=== PATIENT | female | born 1950 | race Caucasian/White ===

== ENCOUNTER 2020-11-30 13:09 | Outpatient (CLI) | payer MEDICARE ==
--- NOTE | 2020-11-30 14:01 | ULT ---
US Breast Limited Lt: 11/30/2020 12:00 AM CLINICAL INDICATION: Palpable breast mass and pain at the 2:00 position of the left breast. COMPARISON: Mammogram 11/30/2020 TECHNIQUE: Multiplanar grayscale and color Doppler images were obtained of the breast. FINDINGS: Normal appearing parenchyma is seen. No suspicious mass is seen. No suspicious shadowing is seen. No cyst is identified. IMPRESSION: BI-RADS Category 1-negative.
--- NOTE | 2020-11-30 14:04 | MMO ---
Bilateral MAMMO Bilat Diag [facility]DI+DASH. CLINICAL HISTORY: Patient is 70 years old and is seen for diagnostic exam and palpable abnormality in the left breast at 3 o'clock. The patient has no family history of breast cancer. The patient has no personal history of cancer. VIEWS: The views performed were: bilateral craniocaudal with tomosynthesis; bilateral mediolateral oblique with tomosynthesis; and bilateral mediolateral with tomosynthesis. FILMS COMPARED: The present examination has been compared to prior imaging studies performed at and at [facility] on 11/30/2020. This study has been interpreted with the assistance of computer-aided detection. MAMMOGRAM FINDINGS: There are scattered fibroglandular densities. There are stable benign appearing calcifications seen in both breasts. There are also vascular calcifications. There are no suspicious masses, suspicious calcifications, or new areas of architectural distortion. IMPRESSION: THERE IS NO MAMMOGRAPHIC EVIDENCE OF MALIGNANCY. A ROUTINE FOLLOW-UP MAMMOGRAM IN 1 YEAR IS RECOMMENDED. THE RESULTS OF THIS EXAM WERE SENT TO THE PATIENT. ACR BI-RADS Category 2 - Benign finding MAMMOGRAPHY NOTE: 1. A negative mammogram report should not delay a biopsy if a dominant of clinically suspicious mass is present. 2. Approximately 10% to 15% of breast cancers are not detected by mammography. 3. Adenosis and dense breasts may obscure an underlying neoplasm. Reported by: NORIS TOMPKINS MD Electonically Signed: [id number]
== END 2020-11-30 13:10 | disposition home or self-care (01) ==
LOC: BICMAMMO 13:09
PROVIDERS: ATTEND Family Medicine
DX: N63.20 Unspecified lump in the left breast, unspecified quadrant (principal); R92.8 Other abnormal and inconclusive findings on diagnostic imaging of breast
CPT/HCPCS: 76642; 77066; G0279

== ENCOUNTER 2021-12-05 07:46 | Outpatient (CLI) | payer MEDICARE | END 2021-12-05 07:47 | disposition home or self-care (01) | LOC: BICMAMMO 07:46 | PROVIDERS: ATTEND Family Medicine | DX: Z12.31 Encounter for screening mammogram for malignant neoplasm of breast (principal) | CPT/HCPCS: 77063; 77067 ==

== ENCOUNTER 2023-02-05 08:10 | Outpatient (CLI) | payer MEDICARE | END 2023-02-05 08:11 | disposition home or self-care (01) | LOC: BICMAMMO 08:10 | PROVIDERS: ATTEND Family Medicine | DX: Z12.31 Encounter for screening mammogram for malignant neoplasm of breast (principal) | CPT/HCPCS: 77063; 77067 ==

== ENCOUNTER 2023-09-08 20:51 | Inpatient (IN) | payer MEDICARE ==
[2023-09-08] MEDS ORDERED: Morphine 4 MG/ML VIAL ONE ×2 (21:01→21:18)
[2023-09-08] MEDS ORDERED: Ondansetron PF 4 MG/2 ML Vial ONE (21:01)
[2023-09-08 23:01] LABS: #Basophils 0.1 thou/uL (0.0-0.2); #Eosinphils 0.2 thou/uL (0.0-0.7); #Monocytes 0.6 thou/uL (0.11-0.59); #Neutrophils 9.2 thou/uL (1.40-6.50); %Basophils 0.6 % (0.0-1.0); %Eosinophils 1.8 % (0.0-10.0); %Lymphocytes 15.3 % (21.0-51.0); %Monocytes 5.2 % (0.0-10.0); %Neutrophils 76.7 % (42.0-75.0); Hematocrit 32.7 % (36.0-47.0); Hemoglobin 10.3 g/dL (12.0-16.0); Mean Corpuscular HGB CONC 31.5 g/dL (32.0-36.0); Mean Corpuscular Hemoglobin 29.2 pg (27.0-31.0); Mean Corpuscular Volume 92.6 fl (78.0-98.0); Mean Platelet Volume 10.5 fL (7.4-10.4); Platelet Count 226 10x3/uL (130-400); RBC Distribution Width 13.8 % (11.5-14.5); Red Blood Cell (RBC) Count 3.53 mill/uL (4.20-5.40); White Blood Cell (WBC) Count 11.9 10x3/uL (4.8-10.8)
[2023-09-08 23:15] LABS: PTT 27.1 sec (22.9-36.1); Prothrombin Time 13.9 sec (12.0-14.7)
[2023-09-08 23:23] LABS: ALT (SGPT) 19 U/L (8-55); AST (SGOT) 20 U/L (5-34); Albumin 3.9 g/dL (3.4-4.8); Alkaline Phosphatase 114 U/L (40-110); Anion Gap 11 mmol/L (10-20); BUN (Urea Nitrogen) 20 mg/dL (9.8-20.1); Bilirubin, Total 0.4 mg/dL (0.2-1.2); Calc. Creatinine Clearance 0 mL/min (70-130); Calcium 8.6 mg/dL (7.8-10.44); Carbon Dioxide 25 mmol/L (23-31); Chloride 107 mmol/L (98-107); Estimated GFR 56; Glucose 184 mg/dL (83-110); Potassium 4.2 mmol/L (3.5-5.1); Protein, Total 5.9 g/dL (5.8-8.1); Sodium 139 mmol/L (136-145)
[2023-09-08] MEDS ORDERED: Orphenadrine Citrate 60 MG/2 ML VIAL ONE (23:39)
[2023-09-09] MEDS ORDERED: Ondansetron PF 4 MG/2 ML Vial IVP PRN ×2 (00:45→17:20)
[2023-09-09] MEDS ORDERED: Dextrose 5 %-0.45 % NaCl 1,000 ML IV SCH (00:45)
[2023-09-09] MEDS ORDERED: Ondansetron ODT 4 MG TAB SL PRN (00:45)
[2023-09-09] MEDS: Morphine 4 MG/ML VIAL SLOW IVP PRN ×2 (00:47→04:31)
[2023-09-09 01:37] VITALS: BMI 29.5
[2023-09-09] MEDS ORDERED: Ipratropium/Albuterol 3 ML NEB NEB PRN (06:54)
[2023-09-09] MEDS ORDERED: Dextrose 50% Abboject 50 ML SYRINGE SLOW IVP PRN (06:54)
[2023-09-09] MEDS ORDERED: Dextrose 5% in Water 1,000 ML IV PRN (06:54)
[2023-09-09] MEDS ORDERED: Glucagon 1 MG/ML KIT IM PRN (06:54)
[2023-09-09] MEDS ORDERED: hydrALAZINE 20 MG/ML VIAL SLOW IVP PRN (06:58)
[2023-09-09] MEDS: Acetaminophen 325 MG TAB PO SCH ×3 (07:44→18:01)
[2023-09-09 07:58] LABS: Glucose 120 mg/dL (83-110)
[2023-09-09] MEDS ORDERED: CEFAZOLIN 2 GM VIAL ONE ×2 (08:05→12:33)
[2023-09-09] MEDS ORDERED: Sodium Chloride 0.9% 200 ML ONE (08:05)
[2023-09-09] MEDS ORDERED: Tranexamic Acid 1,000 MG/10 ML VIAL ONE (08:05)
[2023-09-09] MEDS ORDERED: fentaNYL 50 mcg/mL 1 mL Vial ONE ×4 (08:13→13:28)
[2023-09-09] MEDS ORDERED: SUGAMMADEX SODIUM 200 MG/2 ML VIAL ONE (08:13)
[2023-09-09] MEDS ORDERED: Famotidine/PF 20 mg/2ml Vial ONE (08:13)
[2023-09-09] MEDS ORDERED: Ketorolac Tromethamine 30 MG/ML VIAL ONE (08:29)
[2023-09-09] MEDS ORDERED: ePHEDrine Sulfate 50 MG/10 ML VIAL ONE (08:29)
[2023-09-09] MEDS ORDERED: PROPOFOL 200 MG/20 ML VIAL ONE (08:29)
[2023-09-09] MEDS ORDERED: Ondansetron PF 4 MG/2 ML Vial ONE (08:29)
[2023-09-09] MEDS ORDERED: Lidocaine 1% PF 5 ML VIAL ONE (08:29)
[2023-09-09] MEDS ORDERED: Rocuronium Bromide 10 MG/ML (10ML VIAL) ONE (08:29)
[2023-09-09] MEDS ORDERED: PHENYLEPHRINE-NS 100 MCG/ML 10 ML SYRINGE ONE (08:29)
[2023-09-09] MEDS ORDERED: TETANUS, DIPHTHERIA TOX,ADULT (TDVAX) 0.5 ML VIAL IM ONE (09:00)
[2023-09-09] MEDS: Famotidine 20 MG TAB PO SCH ×2 (09:43→20:00)
[2023-09-09] MEDS ORDERED: Phenylephrine 10 MG/ML VIAL ONE (10:37)
[2023-09-09] MEDS ORDERED: PACU-Morphine 4MG/ML VIAL SLOW IVP PRN (11:15)
[2023-09-09] MEDS ORDERED: Promethazine HCl 25 MG/ML VIAL IM PRN (11:15)
[2023-09-09] MEDS ORDERED: Ondansetron HCl/PF 4 MG/2 ML Vial IVP PRN (11:15)
[2023-09-09] MEDS ORDERED: fentaNYL PF 100 MCG/2 ML SYRINGE ONE (12:47)
[2023-09-09 14:25] LABS: Glucose 250 mg/dL (83-110)
[2023-09-09] MEDS: HumaLOG 300 UNITS/3 ML VIAL SC PRN ×2 (14:45→17:46)
[2023-09-09] MEDS: Sodium Chloride 0.9% 1,000 ML IV SCH ×2 (14:46→19:59)
[2023-09-09] MEDS: traMADol HCl 50 MG TAB PO PRN ×2 (14:47→22:39)
[2023-09-09 17:14] LABS: Bilirubin Negative (Negative); Blood, Urine Trace (Negative); Clarity Clear (Clear); Glucose, Urine (Dipstick) 300 mg/dL (Negative); Ketone, Urine Trace mg/dL (Negative); Leukocyte 250 Leu/uL (Negative); Nitrite Negative (Negative); Protein, Urine (Dipstick) 20 mg/dL (Neg-Trace); Specific Gravity, Urine 1.026 (1.002-1.036); Urobilinogen Normal mg/dL (Less than 2)
[2023-09-09] MEDS ORDERED: Morphine 2 MG/ML VIAL SLOW IVP PRN (17:17)
[2023-09-09 17:22] LABS: Bacteria/HPF Rare-Few HPF (None Seen); RBC/HPF 0-3 HPF (0-3); Squamous Epithelial 0-3 HPF (0-3)
[2023-09-09 17:30] LABS: Glucose 249 mg/dL (83-110)
[2023-09-09] MEDS: Insulin Glargine 30 UNITS/0.3 ML VIAL SC SCH (20:00)
[2023-09-09] MEDS: CEFAZOLIN 2 GM in Sodium Chloride 0.9% 100 ML IVPB SCH (20:01)
[2023-09-10] MEDS: Acetaminophen 325 MG TAB PO SCH ×2 (01:02→05:35)
[2023-09-10] MEDS: Sodium Chloride 0.9% 1,000 ML IV SCH ×2 (03:38→22:35)
[2023-09-10] MEDS: Levothyroxine 150 MCG TAB PO SCH (05:35)
[2023-09-10] MEDS: CEFAZOLIN 2 GM in Sodium Chloride 0.9% 100 ML IVPB SCH (05:35)
[2023-09-10] MEDS ORDERED: Gabapentin 300 MG CAP PO SCH (09:00)
[2023-09-10 09:07] LABS: #Basophils 0.1 thou/uL (0.0-0.2); #Eosinphils 0.1 thou/uL (0.0-0.7); #Monocytes 0.7 thou/uL (0.11-0.59); #Neutrophils 4.7 thou/uL (1.40-6.50); %Basophils 0.7 % (0.0-1.0); %Eosinophils 1.5 % (0.0-10.0); %Lymphocytes 22.6 % (21.0-51.0); %Neutrophils 64.9 % (42.0-75.0); Mean Corpuscular HGB CONC 31.7 g/dL (32.0-36.0); Mean Corpuscular Hemoglobin 29.6 pg (27.0-31.0); Mean Corpuscular Volume 93.4 fl (78.0-98.0); Mean Platelet Volume 11.4 fL (7.4-10.4); Platelet Count 133 10x3/uL (130-400); RBC Distribution Width 14.1 % (11.5-14.5); Red Blood Cell (RBC) Count 2.13 mill/uL (4.20-5.40); White Blood Cell (WBC) Count 7.2 10x3/uL (4.8-10.8)
[2023-09-10] MEDS: Famotidine 20 MG TAB PO SCH ×2 (09:08→20:55)
[2023-09-10] MEDS: Losartan 25 MG TAB PO SCH (09:09)
[2023-09-10] MEDS: Insulin Glargine 30 UNITS/0.3 ML VIAL SC SCH ×2 (09:09→20:55)
[2023-09-10 09:23] LABS: Hematocrit 19.9 % (36.0-47.0); Hemoglobin 6.3 g/dL (12.0-16.0)
[2023-09-10 09:38] LABS: Anion Gap 10 mmol/L (10-20); BUN (Urea Nitrogen) 23 mg/dL (9.8-20.1); Calc. Creatinine Clearance 72 mL/min (70-130); Calcium 7.7 mg/dL (7.8-10.44); Carbon Dioxide 23 mmol/L (23-31); Chloride 107 mmol/L (98-107); Estimated GFR 59; Glucose 145 mg/dL (83-110); Potassium 4.5 mmol/L (3.5-5.1); Sodium 135 mmol/L (136-145)
[2023-09-10 09:50] LABS: Glucose 145 mg/dL (83-110)
[2023-09-10] MEDS ORDERED: Cyclobenzaprine 10 MG TAB PO PRN (10:01)
[2023-09-10 12:08] LABS: Glucose 225 mg/dL (83-110)
[2023-09-10] MEDS: Acetaminophen 500 MG TAB PO SCH ×2 (13:14→17:48)
[2023-09-10] MEDS: traMADol HCl 50 MG TAB PO SCH ×2 (13:15→17:48)
[2023-09-10] MEDS: Ibuprofen 200 MG TAB PO SCH ×2 (14:56→20:54)
[2023-09-10] MEDS: Gabapentin 300 MG CAP PO SCH ×2 (14:57→20:55)
[2023-09-10] MEDS: Ferrous Sulfate 325 MG TAB PO SCH (17:48)
[2023-09-10 18:03] LABS: Glucose 245 mg/dL (83-110)
[2023-09-10 18:08] LABS: #Eosinphils 0.3 thou/uL (0.0-0.7); #Monocytes 0.7 thou/uL (0.11-0.59); #Neutrophils 5.2 thou/uL (1.40-6.50); %Basophils 0.5 % (0.0-1.0); %Eosinophils 3.1 % (0.0-10.0); %Monocytes 8.8 % (0.0-10.0); %Neutrophils 61.6 % (42.0-75.0); Hematocrit 23.6 % (36.0-47.0); Hemoglobin 7.5 g/dL (12.0-16.0); Mean Corpuscular HGB CONC 31.8 g/dL (32.0-36.0); Mean Corpuscular Hemoglobin 30.1 pg (27.0-31.0); Mean Corpuscular Volume 94.8 fl (78.0-98.0); Mean Platelet Volume 11.2 fL (7.4-10.4); RBC Distribution Width 13.8 % (11.5-14.5); Red Blood Cell (RBC) Count 2.49 mill/uL (4.20-5.40); White Blood Cell (WBC) Count 8.4 10x3/uL (4.8-10.8)
[2023-09-10 18:12] LABS: Platelet Count 117 10x3/uL (130-400)
[2023-09-10] MEDS: HumaLOG 300 UNITS/3 ML VIAL SC PRN (18:38)
[2023-09-10] MEDS: Ascorbic Acid 500 mg Chewable Tablet PO SCH (20:55)
[2023-09-10] MEDS ORDERED: Senokot S 8.6-50 MG TAB PO SCH (23:00)
[2023-09-10] MEDS ORDERED: Polyethylene Glycol 3350 17 GM Packet PO SCH (23:00)
[2023-09-11] MEDS: traMADol HCl 50 MG TAB PO SCH ×4 (00:15→17:35)
[2023-09-11] MEDS: Acetaminophen 500 MG TAB PO SCH ×4 (00:15→17:36)
[2023-09-11 04:58] LABS: #Basophils 0.1 thou/uL (0.0-0.2); #Eosinphils 0.5 thou/uL (0.0-0.7); #Monocytes 0.9 thou/uL (0.11-0.59); #Neutrophils 3.8 thou/uL (1.40-6.50); %Basophils 0.6 % (0.0-1.0); %Eosinophils 5.5 % (0.0-10.0); %Lymphocytes 43.8 % (21.0-51.0); %Monocytes 9.6 % (0.0-10.0); Hematocrit 22.2 % (36.0-47.0); Hemoglobin 7.2 g/dL (12.0-16.0); Mean Corpuscular HGB CONC 32.4 g/dL (32.0-36.0); Mean Corpuscular Hemoglobin 30.1 pg (27.0-31.0); Mean Corpuscular Volume 92.9 fl (78.0-98.0); Mean Platelet Volume 11.2 fL (7.4-10.4); Platelet Count 131 10x3/uL (130-400); Red Blood Cell (RBC) Count 2.39 mill/uL (4.20-5.40); White Blood Cell (WBC) Count 9.6 10x3/uL (4.8-10.8)
[2023-09-11] MEDS: Ibuprofen 200 MG TAB PO SCH (06:28)
[2023-09-11] MEDS: Levothyroxine 150 MCG TAB PO SCH (06:29)
[2023-09-11 08:17] LABS: Glucose 139 mg/dL (83-110)
[2023-09-11] MEDS: Ascorbic Acid 500 mg Chewable Tablet PO SCH ×2 (08:25→18:48)
[2023-09-11] MEDS: Senokot S 8.6-50 MG TAB PO SCH ×2 (08:25→21:43)
[2023-09-11] MEDS: Famotidine 20 MG TAB PO SCH ×2 (08:25→21:42)
[2023-09-11] MEDS: Polyethylene Glycol 3350 17 GM Packet PO SCH (08:25)
[2023-09-11] MEDS: Ferrous Sulfate 325 MG TAB PO SCH ×2 (08:25→17:39)
[2023-09-11] MEDS: Losartan 25 MG TAB PO SCH (08:26)
[2023-09-11] MEDS: Insulin Glargine 30 UNITS/0.3 ML VIAL SC SCH ×2 (08:26→21:43)
[2023-09-11] MEDS: Gabapentin 300 MG CAP PO SCH ×3 (08:26→21:42)
[2023-09-11 12:52] LABS: Hematocrit 20.8 % (36.0-47.0); Hemoglobin 6.8 g/dL (12.0-16.0); Platelet Count 126 10x3/uL (130-400)
[2023-09-11] MEDS: Sodium Chloride 0.9% 1,000 ML IV SCH (15:36)
[2023-09-11] MEDS: HumaLOG 300 UNITS/3 ML VIAL SC PRN ×2 (17:34→21:45)
[2023-09-12] MEDS: Acetaminophen 500 MG TAB PO SCH ×5 (00:54→23:48)
[2023-09-12] MEDS: traMADol HCl 50 MG TAB PO SCH ×6 (00:54→23:50)
[2023-09-12] MEDS: Sodium Chloride 0.9% 1,000 ML IV SCH ×2 (02:52→15:52)
[2023-09-12] MEDS: Levothyroxine 150 MCG TAB PO SCH (05:23)
[2023-09-12] MEDS: Ascorbic Acid 500 mg Chewable Tablet PO SCH ×2 (05:23→16:42)
[2023-09-12] MEDS: HumaLOG 300 UNITS/3 ML VIAL SC PRN ×4 (06:10→20:59)
[2023-09-12 07:49] LABS: #Basophils 0.1 thou/uL (0.0-0.2); #Eosinphils 0.7 thou/uL (0.0-0.7); #Monocytes 0.9 thou/uL (0.11-0.59); #Neutrophils 4.4 thou/uL (1.40-6.50); %Basophils 0.5 % (0.0-1.0); %Eosinophils 6.3 % (0.0-10.0); %Lymphocytes 40.3 % (21.0-51.0); %Monocytes 9.2 % (0.0-10.0); %Neutrophils 43.1 % (42.0-75.0); Hematocrit 27.8 % (36.0-47.0); Hemoglobin 9.3 g/dL (12.0-16.0); Mean Corpuscular HGB CONC 33.5 g/dL (32.0-36.0); Mean Corpuscular Hemoglobin 30.5 pg (27.0-31.0); Mean Corpuscular Volume 91.1 fl (78.0-98.0); Mean Platelet Volume 10.9 fL (7.4-10.4); Platelet Count 154 10x3/uL (130-400); RBC Distribution Width 14.1 % (11.5-14.5); Red Blood Cell (RBC) Count 3.05 mill/uL (4.20-5.40); White Blood Cell (WBC) Count 10.3 10x3/uL (4.8-10.8)
[2023-09-12] MEDS: Ferrous Sulfate 325 MG TAB PO SCH ×2 (08:25→15:51)
[2023-09-12] MEDS: Famotidine 20 MG TAB PO SCH ×2 (08:25→20:46)
[2023-09-12] MEDS: Senokot S 8.6-50 MG TAB PO SCH ×2 (08:25→20:47)
[2023-09-12] MEDS: Polyethylene Glycol 3350 17 GM Packet PO SCH (08:26)
[2023-09-12] MEDS: Insulin Glargine 30 UNITS/0.3 ML VIAL SC SCH ×2 (08:26→20:59)
[2023-09-12] MEDS: Gabapentin 300 MG CAP PO SCH ×3 (08:27→20:46)
[2023-09-12] MEDS: Losartan 25 MG TAB PO SCH (08:35)
[2023-09-12] MEDS: Aspirin 81 mg Enteric Coated Tablet PO SCH ×2 (08:37→20:46)
[2023-09-12] MEDS: traMADol HCl 50 MG TAB PO PRN (09:06)
[2023-09-12 13:22] LABS: Hemoglobin A1c 6.2 % (4.0-6.0)
[2023-09-12] MEDS: Ondansetron ODT 4 MG TAB PO PRN (16:41)
[2023-09-13] MEDS: Levothyroxine 150 MCG TAB PO SCH (05:58)
[2023-09-13] MEDS: Ascorbic Acid 500 mg Chewable Tablet PO SCH ×2 (05:58→19:15)
[2023-09-13] MEDS: Acetaminophen 500 MG TAB PO SCH ×3 (05:58→17:55)
[2023-09-13] MEDS: Sodium Chloride 0.9% 1,000 ML IV SCH ×2 (06:00→23:12)
[2023-09-13] MEDS: traMADol HCl 50 MG TAB PO SCH ×3 (06:01→17:55)
[2023-09-13 07:45] LABS: Hematocrit 28.5 % (36.0-47.0); Hemoglobin 9.4 g/dL (12.0-16.0); Platelet Count 202 10x3/uL (130-400)
[2023-09-13] MEDS: Aspirin 81 mg Enteric Coated Tablet PO SCH ×2 (08:45→21:10)
[2023-09-13] MEDS: Gabapentin 300 MG CAP PO SCH ×3 (08:45→21:10)
[2023-09-13] MEDS: Losartan 25 MG TAB PO SCH (08:45)
[2023-09-13] MEDS: Famotidine 20 MG TAB PO SCH ×2 (08:46→21:10)
[2023-09-13] MEDS: Insulin Glargine 30 UNITS/0.3 ML VIAL SC SCH ×2 (08:46→21:10)
[2023-09-13] MEDS: Ferrous Sulfate 325 MG TAB PO SCH ×2 (08:46→17:55)
[2023-09-13] MEDS: Polyethylene Glycol 3350 17 GM Packet PO SCH (08:46)
[2023-09-13] MEDS: Senokot S 8.6-50 MG TAB PO SCH ×2 (08:46→23:12)
[2023-09-13] MEDS: HumaLOG 300 UNITS/3 ML VIAL SC PRN (11:22)
[2023-09-14] MEDS: Acetaminophen 500 MG TAB PO SCH ×5 (00:08→23:52)
[2023-09-14] MEDS: traMADol HCl 50 MG TAB PO SCH ×5 (05:24→23:57)
[2023-09-14] MEDS: Ascorbic Acid 500 mg Chewable Tablet PO SCH ×2 (05:46→15:26)
[2023-09-14] MEDS: Levothyroxine 150 MCG TAB PO SCH (05:46)
[2023-09-14] MEDS: Gabapentin 300 MG CAP PO SCH ×3 (08:56→20:06)
[2023-09-14] MEDS: Ferrous Sulfate 325 MG TAB PO SCH ×2 (08:57→18:49)
[2023-09-14] MEDS: Losartan 25 MG TAB PO SCH (08:57)
[2023-09-14] MEDS: Aspirin 81 mg Enteric Coated Tablet PO SCH ×2 (08:57→20:06)
[2023-09-14] MEDS: Polyethylene Glycol 3350 17 GM Packet PO SCH (08:58)
[2023-09-14] MEDS: Famotidine 20 MG TAB PO SCH ×2 (08:58→20:06)
[2023-09-14] MEDS: Insulin Glargine 30 UNITS/0.3 ML VIAL SC SCH ×2 (08:58→20:51)
[2023-09-14] MEDS: Senokot S 8.6-50 MG TAB PO SCH ×2 (08:59→22:13)
[2023-09-14] MEDS: Sodium Chloride 0.9% 1,000 ML IV SCH (14:44)
[2023-09-15] MEDS: Acetaminophen 500 MG TAB PO SCH ×4 (05:25→23:49)
[2023-09-15] MEDS: Levothyroxine 150 MCG TAB PO SCH (05:25)
[2023-09-15] MEDS: Ascorbic Acid 500 mg Chewable Tablet PO SCH ×2 (05:25→15:38)
[2023-09-15] MEDS: traMADol HCl 50 MG TAB PO SCH ×4 (05:37→23:50)
[2023-09-15] MEDS: Aspirin 81 mg Enteric Coated Tablet PO SCH ×2 (09:54→20:28)
[2023-09-15] MEDS: Losartan 25 MG TAB PO SCH (09:54)
[2023-09-15] MEDS: Famotidine 20 MG TAB PO SCH ×2 (09:55→20:28)
[2023-09-15] MEDS: Gabapentin 300 MG CAP PO SCH ×3 (09:55→20:28)
[2023-09-15] MEDS: Polyethylene Glycol 3350 17 GM Packet PO SCH (09:56)
[2023-09-15] MEDS: Insulin Glargine 30 UNITS/0.3 ML VIAL SC SCH ×2 (09:56→20:28)
[2023-09-15] MEDS: Ferrous Sulfate 325 MG TAB PO SCH ×2 (09:56→18:24)
[2023-09-15] MEDS: Senokot S 8.6-50 MG TAB PO SCH ×2 (09:59→20:28)
[2023-09-15] MEDS: Ondansetron ODT 4 MG TAB PO PRN (13:07)
[2023-09-15 13:41] LABS: #Eosinphils 0.7 thou/uL (0.0-0.7); #Monocytes 0.9 thou/uL (0.11-0.59); #Neutrophils 5.2 thou/uL (1.40-6.50); %Basophils 0.4 % (0.0-1.0); %Eosinophils 6.6 % (0.0-10.0); %Lymphocytes 30.7 % (21.0-51.0); %Monocytes 8.8 % (0.0-10.0); %Neutrophils 52.9 % (42.0-75.0); Hematocrit 32.2 % (36.0-47.0); Hemoglobin 10.5 g/dL (12.0-16.0); Mean Corpuscular HGB CONC 32.6 g/dL (32.0-36.0); Mean Corpuscular Hemoglobin 30.3 pg (27.0-31.0); Mean Corpuscular Volume 92.8 fl (78.0-98.0); Mean Platelet Volume 10.1 fL (7.4-10.4); Platelet Count 300 10x3/uL (130-400); RBC Distribution Width 14.6 % (11.5-14.5); Red Blood Cell (RBC) Count 3.47 mill/uL (4.20-5.40); White Blood Cell (WBC) Count 9.8 10x3/uL (4.8-10.8)
[2023-09-15 14:05] LABS: ALT (SGPT) 26 U/L (8-55); AST (SGOT) 33 U/L (5-34); Albumin 3.2 g/dL (3.4-4.8); Alkaline Phosphatase 160 U/L (40-110); Anion Gap 11 mmol/L (10-20); BUN (Urea Nitrogen) 16 mg/dL (9.8-20.1); Bilirubin, Total 1.3 mg/dL (0.2-1.2); Calc. Creatinine Clearance 84 mL/min (70-130); Calcium 8.9 mg/dL (7.8-10.44); Carbon Dioxide 27 mmol/L (23-31); Chloride 103 mmol/L (98-107); Estimated GFR 72; Globulin 2.4 g/dL (2.4-3.5); Glucose 134 mg/dL (83-110); Potassium 4.3 mmol/L (3.5-5.1); Protein, Total 5.6 g/dL (5.8-8.1); Sodium 137 mmol/L (136-145)
[2023-09-15] MEDS: Scopolamine 1 mg/72 hour Patch TD SCH (15:39)
[2023-09-15] MEDS: HumaLOG 300 UNITS/3 ML VIAL SC PRN (18:25)
[2023-09-16] MEDS: traMADol HCl 50 MG TAB PO SCH ×4 (05:21→22:17)
[2023-09-16] MEDS: Acetaminophen 500 MG TAB PO SCH ×3 (05:21→17:41)
[2023-09-16] MEDS: Levothyroxine 150 MCG TAB PO SCH (05:21)
[2023-09-16] MEDS: Ascorbic Acid 500 mg Chewable Tablet PO SCH ×2 (05:22→16:51)
[2023-09-16] MEDS: Gabapentin 300 MG CAP PO SCH ×3 (09:12→22:18)
[2023-09-16] MEDS: Aspirin 81 mg Enteric Coated Tablet PO SCH ×2 (09:12→22:18)
[2023-09-16] MEDS: Senokot S 8.6-50 MG TAB PO SCH ×2 (09:12→22:34)
[2023-09-16] MEDS: Famotidine 20 MG TAB PO SCH ×2 (09:12→22:17)
[2023-09-16] MEDS: Losartan 25 MG TAB PO SCH (09:12)
[2023-09-16] MEDS: Insulin Glargine 30 UNITS/0.3 ML VIAL SC SCH ×2 (09:12→22:19)
[2023-09-16] MEDS: Ferrous Sulfate 325 MG TAB PO SCH ×2 (09:13→16:27)
[2023-09-16] MEDS: Polyethylene Glycol 3350 17 GM Packet PO SCH (09:13)
[2023-09-16] MEDS: HumaLOG 300 UNITS/3 ML VIAL SC PRN (16:28)
[2023-09-17] MEDS: Acetaminophen 500 MG TAB PO SCH ×5 (00:34→23:48)
[2023-09-17] MEDS: Levothyroxine 150 MCG TAB PO SCH (05:59)
[2023-09-17] MEDS: traMADol HCl 50 MG TAB PO SCH ×4 (05:59→23:47)
[2023-09-17] MEDS: Ascorbic Acid 500 mg Chewable Tablet PO SCH ×2 (07:31→17:42)
[2023-09-17] MEDS: Famotidine 20 MG TAB PO SCH ×2 (10:00→20:57)
[2023-09-17] MEDS: Gabapentin 300 MG CAP PO SCH ×3 (10:00→20:57)
[2023-09-17] MEDS: Losartan 25 MG TAB PO SCH (10:00)
[2023-09-17] MEDS: Aspirin 81 mg Enteric Coated Tablet PO SCH ×2 (10:00→20:57)
[2023-09-17] MEDS: Insulin Glargine 30 UNITS/0.3 ML VIAL SC SCH ×2 (10:01→21:02)
[2023-09-17] MEDS: Senokot S 8.6-50 MG TAB PO SCH ×2 (10:18→21:16)
[2023-09-17] MEDS: Ferrous Sulfate 325 MG TAB PO SCH ×2 (10:18→18:31)
[2023-09-17] MEDS: Polyethylene Glycol 3350 17 GM Packet PO SCH (10:18)
[2023-09-17] MEDS: HumaLOG 300 UNITS/3 ML VIAL SC PRN (13:57)
[2023-09-18] MEDS: Acetaminophen 500 MG TAB PO SCH ×2 (05:24→12:15)
[2023-09-18] MEDS: Levothyroxine 150 MCG TAB PO SCH (05:24)
[2023-09-18] MEDS: traMADol HCl 50 MG TAB PO SCH ×2 (06:45→12:54)
[2023-09-18] MEDS: Aspirin 81 mg Enteric Coated Tablet PO SCH (09:34)
[2023-09-18] MEDS: Polyethylene Glycol 3350 17 GM Packet PO SCH (09:35)
[2023-09-18] MEDS: Losartan 25 MG TAB PO SCH (09:35)
[2023-09-18] MEDS: Famotidine 20 MG TAB PO SCH (09:36)
[2023-09-18] MEDS: Ferrous Sulfate 325 MG TAB PO SCH (09:36)
[2023-09-18] MEDS: Ascorbic Acid 500 mg Chewable Tablet PO SCH ×2 (09:36→09:41)
[2023-09-18] MEDS: Insulin Glargine 30 UNITS/0.3 ML VIAL SC SCH (09:36)
[2023-09-18] MEDS: Gabapentin 300 MG CAP PO SCH ×2 (09:36→14:49)
[2023-09-18] MEDS: Senokot S 8.6-50 MG TAB PO SCH (09:37)
[2023-09-18] MEDS: HumaLOG 300 UNITS/3 ML VIAL SC PRN (12:15)
[2023-09-18] MEDS: Scopolamine 1 mg/72 hour Patch TD SCH (14:50)
[2023-09-18 17:27] VITALS: BP 153/69; TEMP 98.1
== END 2023-09-18 18:15 | disposition home or self-care (01) | DRG 481 ==
LOC: ERS 20:51 → SURG A 23:47
PROVIDERS: ADMIT Student in an Organized Health Care Education/Training Program; ATTEND Student in an Organized Health Care Education/Training Program
PROC: 0QS604Z Reposition Right Upper Femur with Internal Fixation Device, Open Approach (ICD-10-PCS; principal; 2023-09-09)
PROC: 30233N1 Transfusion of Nonautologous Red Blood Cells into Peripheral Vein, Percutaneous Approach (ICD-10-PCS; 2023-09-10)
DX: S72.21XA Displaced subtrochanteric fracture of right femur, initial encounter for closed fracture (principal); D62 Acute posthemorrhagic anemia; E10.9 Type 1 diabetes mellitus without complications; E03.9 Hypothyroidism, unspecified; I10 Essential (primary) hypertension; E78.00 Pure hypercholesterolemia, unspecified; E66.9 Obesity, unspecified; Z96.653 Presence of artificial knee joint, bilateral; Z79.01 Long term (current) use of anticoagulants; Z98.890 Other specified postprocedural states; Z79.4 Long term (current) use of insulin; Z68.29 Body mass index [BMI] 29.0-29.9, adult; Z79.82 Long term (current) use of aspirin; Z79.899 Other long term (current) drug therapy; Z79.51 Long term (current) use of inhaled steroids; W01.0XXA Fall on same level from slipping, tripping and stumbling without subsequent striking against object, initial encounter
CPT/HCPCS: 36415; 36416; 36430; 71045; 72170; 74018; 80053; 81001; 82947; 83036; 85014; 85018; 85025; 85049; 85610; 85730; 86850; 86900; 86901; 93005; 96374; 96375; 96376; C1713; C1776; J0360; J1815; J1885; J2270; J2360; J2370; J2405; J2704; J3010; J3490; J7050; P9016; Q0162; S0028

== ENCOUNTER 2024-03-20 09:38 | Outpatient (CLI) | payer MEDICARE | END 2024-03-20 09:39 | disposition home or self-care (01) | LOC: BICULT 09:38 | PROVIDERS: ATTEND Physician Assistant Medical | DX: R74.8 Abnormal levels of other serum enzymes (principal); K83.8 Other specified diseases of biliary tract | CPT/HCPCS: 76705 ==

== ENCOUNTER 2024-04-15 08:26 | Outpatient (CLI) | payer MEDICARE ==
[2024-04-15] MEDS ORDERED: Iopamidol 370 76% 100 ML VIAL ONE (09:07)
== END 2024-04-15 08:27 | disposition home or self-care (01) ==
LOC: BICCT 08:26
PROVIDERS: ATTEND Physician Assistant Medical
DX: K83.8 Other specified diseases of biliary tract (principal); R74.8 Abnormal levels of other serum enzymes; J98.4 Other disorders of lung; D73.89 Other diseases of spleen; I25.10 Atherosclerotic heart disease of native coronary artery without angina pectoris; K44.9 Diaphragmatic hernia without obstruction or gangrene; E27.8 Other specified disorders of adrenal gland; I70.0 Atherosclerosis of aorta; M47.814 Spondylosis without myelopathy or radiculopathy, thoracic region; M47.816 Spondylosis without myelopathy or radiculopathy, lumbar region; M41.9 Scoliosis, unspecified
CPT/HCPCS: 74170; 82565

== ENCOUNTER 2024-07-08 06:55 | Outpatient (CLI) | payer MEDICARE | END 2024-07-08 06:56 | disposition home or self-care (01) | LOC: BICULT 06:55 | PROVIDERS: ATTEND Family Medicine | DX: R60.0 Localized edema (principal) | CPT/HCPCS: 93970 ==

== ENCOUNTER 2025-06-30 13:54 | Outpatient (CLI) | payer MEDICARE | END 2025-06-30 13:55 | disposition home or self-care (01) | LOC: BICMAMMO 13:54 | PROVIDERS: ATTEND Family Medicine | DX: Z12.31 Encounter for screening mammogram for malignant neoplasm of breast (principal); Z78.0 Asymptomatic menopausal state; M85.859 Other specified disorders of bone density and structure, unspecified thigh; M41.9 Scoliosis, unspecified; Z85.828 Personal history of other malignant neoplasm of skin | CPT/HCPCS: 77063; 77067; 77080 ==